=== PATIENT | male | born 1995 | race Two or more races ===

== ENCOUNTER → 2017-04-09 12:31 | Emergency (ER) | payer OTHER ==
[~2017-04-09 12:31] MED LIST: Ibuprofen TAB* 600 MG PO ONE
[2017-04-09 13:51] LABS: Mono Internal Control QC Line Present
--- NOTE | 2017-04-09 13:57 | RAD ---
INDICATION: Chest pain with deep breath. COMPARISON: There are no prior studies available for comparison. TECHNIQUE: A portable view of the chest was obtained. FINDINGS: Cardiac and mediastinal contours appear to be within normal limits. The lungs are clear. No pneumothorax or pleural effusion is seen. IMPRESSION: NO EVIDENCE FOR ACUTE DISEASE.
[2017-04-09 14:56] VITALS: BP 127/77
--- NOTE | 2017-04-09 15:09 | ED ---
Throat Pain/Nasal Congestion - HPI Summary HPI Summary: 22 male presents to ED with complaints of seeing white spots in throat, being exposed to mono and having chest wall midsternal pains that began today. Patient says he did not see white spots when he looked in the mirror however when he took a picture saw white spots. Patient states he is concerned for having mono due to drinking out of the same glass as a friend who was diagnosed with it. Denies current sore throat, fatigue or fever. Has been coughing for the past week. States second complaint of chest pain are only when he moves a certain way or takes a deep breath. No radiation of pain. States he was lifting excessively yesterday and thinks he may have pulled something. Denies SOB or trouble breathing. Has not taken any medications. Has been eating and drinking normally. No known PMHx. No other complaints at this time. - History of Current Complaint Chief Complaint: EDUpperRespComplaint Time Seen by Provider: 04/09/17 13:33 Hx Obtained From: Patient Onset/Duration: Sudden Onset, Lasting Hours Severity: Mild Associated Signs And Symptoms: Positive: Negative Cough: None - Allergies/Home Medications Allergies/Adverse Reactions: Allergies Allergy/AdvReac Type Severity Reaction Status Date / Time No Known Allergies Allergy Unverified 04/09/17 12:43 PMH/Surg Hx/FS Hx/Imm Hx Endocrine/Hematology History: Denies: Hx Diabetes Cardiovascular History: Denies: Hx Hypertension, Hx Pacemaker/ICD Respiratory History: Reports: Hx Asthma Sensory History: Denies: Hx Hearing Aid Psychiatric History: Reports: Hx Attention Deficit Hyperactivity Disorder Denies: Hx Panic Disorder - Surgical History Surgery Procedure, Year, and Place: n/a - Immunization History Date of Influenza Vaccine: 02/2017 Immunizations Up to Date: Yes Infectious Disease History: No Infectious Disease History: Denies: Traveled Outside the [place] in Last 30 Days - Family History Known Family History: Positive: None - Social History Alcohol Use: Occasionally Substance Use Type: Reports: Marijuana Smoking Status (MU): Never Smoked Tobacco Review of Systems Constitutional: Negative Positive: Other - white spots on picture Positive: Chest Pain - chest wall pain Respiratory: Negative Gastrointestinal: Negative Musculoskeletal: Negative Neurological: Negative All Other Systems Reviewed And Are Negative: Yes Physical Exam Triage Information Reviewed: Yes Vital Signs On Initial Exam: Initial Vitals Temp Pulse Resp BP Pulse Ox 97.8 F 101 16 113/75 99 04/09/17 12:43 04/09/17 12:43 04/09/17 12:43 04/09/17 12:43 04/09/17 12:43 compared patient HR to previous visits over the past couple of years, all similar range, normal for patient Vital Signs Reviewed: Yes Appearance: Positive: Well-Appearing, No Pain Distress, Well-Nourished Skin: Positive: Warm, Skin Color Reflects Adequate Perfusion, Dry. Negative: Cold, Numb, Cyanosis @, Diaphoretic, Pale, Erythema @ Head/Face: Positive: Normal Head/Face Inspection Eyes: Positive: EOMI, TIMA, Conjunctiva Clear ENT: Positive: Normal ENT inspection, Hearing grossly normal, Pharynx normal, TMs normal. Negative: Pharyngeal erythema, Nasal congestion, Nasal drainage, TM bulging, TM dull, TM red, Tonsillar swelling, Tonsillar exudate, Trismus, Muffled/hoarse voice Dental: Negative: Percussion Tenderness @, Cervical Lymphadenopathy Neck: Positive: Supple, Nontender, No Lymphadenopathy Respiratory/Lung Sounds: Positive: Clear to Auscultation, Breath Sounds Present. Negative: Rales, Rhonchi, Wheezes Cardiovascular: Positive: Normal, RRR, Pulses are Symmetrical in both Upper and Lower Extremities, Other - chest pain was midsternal area and reproducible. Negative: Murmur, Rub Abdomen Description: Positive: Nontender, Soft Bowel Sounds: Positive: Present Musculoskeletal: Positive: Normal, Strength/ROM Intact Neurological: Positive: Normal, Sensory/Motor Intact, Alert, Oriented to Person Place, Time, NV Bundle Intact Distally, Normal Gait Diagnostics - Vital Signs Vital Signs Temp Pulse Resp BP Pulse Ox 04/09/17 14:56 98.6 F 98 17 127/77 100 04/09/17 12:43 97.8 F 101 16 113/75 99 - Laboratory Lab Results: Lab Results 04/09/17 04/09/17 Range/Units 13:05 13:28 Monoscreen Negative (Negative) Group A Strep Rapid Negative (Negative) Lab Statement: Any lab studies that have been ordered have been reviewed, and results considered in the medical decision making process. - Radiology chest Xray Interpretation: No Acute Changes - NO EVIDENCE FOR ACUTE DISEASE. Radiology Interpretation Completed By: Radiologist - EKG EKG Cardiac Rate: NL EKG Rhythm: Sinus Rhythm ST Segment: Normal Ectopy: None EKG Interpretation: NSR, normal early repol pattern EKG Comparison: No Significant Change EENT Course/Dx - Course Course Of Treatment: mono and strep obtained and negative. chest xray obtained and negative. given ibuprofen for pain. EKG obtained and normal. no concern for cardiorespiratory etiology at this time. appears patient was concerned for illness due to contact and wanted to be evaluated. Appears to be suffering from costchondritis after heavy lifing, PE findings and HPI. Will treate with ibuporfen, rest, heat/ice and follow up. Aware of worsening signs and symptoms to watch out for. Follow up PCP. - Differential Diagnoses Differential Diagnoses: Pharyngitis, Sinusitis, URI/Bronchitis, Other - FL, ACS , pericarditis, costochondritis - Diagnoses Provider Diagnoses: Costochondritis, acute, Chest pain - Provider Notifications Discussed Care Of Patient With: Dr Orourke Discharge - Discharge Plan Condition: Stable Disposition: HOME Patient Education Materials: Costochondritis (ED) Forms: *School Release Referrals: Gloria Waller MD [Primary Care Provider] - Additional Instructions: Take ibuprofen for pain and inflammation. Rest avoid strenuous physical activity until symptoms improve. Tums for acid reflex as discussed. If symptoms worsen or do not improve please seek medical attention promptly. Follow up with PCP.
== END | disposition home or self-care (01) ==
LOC: ED 12:31
DX: M94.0 Chondrocostal junction syndrome [Tietze] (principal); R07.9 Chest pain, unspecified; F90.9 Attention-deficit hyperactivity disorder, unspecified type; J45.909 Unspecified asthma, uncomplicated
CPT/HCPCS: 36415; 71010; 86308; 87651; 93005; 99282; A9270-GY